=== PATIENT | male | born 1980 | race Caucasian/White ===

== ENCOUNTER 2025-01-30 10:25 | Emergency (ER) | payer SELFPAY ==
[~2025-01-30] VITALS: Ht 167.6 cm; Wt 64.0 kg
[2025-01-30 10:33] VITALS: O2SAT 99
[2025-01-30 10:42] VITALS: BP 169/101; PULSE 104; RESP 14; TEMP 37.2; O2SAT 98
[2025-01-30] MEDS: SODIUM CHLORIDE 0.9% 1,000 ML IV ONE (11:23)
[2025-01-30] MEDS: PANTOPRAZOLE SODIUM 40 MG/VIAL IV STA (11:23)
[2025-01-30] MEDS: ONDANSETRON HCL 4MG/2ML INJ IV STA (11:23)
[2025-01-30 11:30] LABS: BASOPHILS % 0.4 % (0.0-2.0); EOSINOPHILS % 0.5 % (0.0-5.0); HEMATOCRIT. 48.2 % (42.0-52.0); HEMOGLOBIN. 16.5 g/dL (14.0-18.0); LYMPHOCYTES % 19.7 % (20.0-50.0); MEAN CORPUSCULAR HEMOGLOBIN 31.3 pg (28.0-32.0); MEAN CORPUSCULAR HGB CONC 34.2 g/dL (31.0-37.0); MEAN CORPUSCULAR VOLUME 91.5 fL (80.0-94.0); MEAN PLATELET VOLUME 7.8 fl (7.4-10.4); NEUTROPHILS % 75.4 % (40.0-76.0); PLATELET 258 x1000/uL (130-400); RED BLOOD CELL COUNT 5.27 mill/uL (4.7-6.1); RED CELL DISTRIBUTION WIDTH 13.8 % (11.6-14.6); WHITE BLOOD COUNT 6.5 x1000/uL (4.5-11.0)
[2025-01-30 11:41] LABS: CHLORIDE 103 mEq/L (98-107); POTASSIUM 3.8 mEq/L (3.5-5.1); SODIUM 142 mEq/L (136-145)
[2025-01-30 11:42] LABS: CARBON DIOXIDE 27 mEq/L (21-32)
[2025-01-30 11:43] LABS: CALCIUM 9.1 mg/dL (8.7-10.4)
[2025-01-30 11:48] LABS: CREATININE 1.1 mg/dL (0.6-1.3); ETHANOL BLOOD 198 mg/dL (<10); GLUCOSE 107 mg/dL (70-105); UREA NITROGEN BLOOD 15 mg/dL (9-23)
[2025-01-30 11:49] LABS: ALANINE AMINOTRANSFERASE 37 IU/L (10-49)
[2025-01-30 11:50] LABS: ALBUMIN 4.5 g/dL (3.2-4.8); ASPARTATE AMINOTRANSFERASE 35 IU/L (<34); BILIRUBIN DIRECT 0.2 mg/dL (<=3.0); BILIRUBIN TOTAL 0.9 mg/dL (0.1-1.0); PROTEIN TOTAL 8.1 g/dL (6.0-8.3)
[2025-01-30 12:07] LABS: TROPONIN I HIGH SENSITIVITY < 4 ng/L (3.0-53)
[2025-01-30] MEDS ORDERED: CHLORDIAZEPOXIDE 25MG CAPSULE PO ONE (13:00)
== END 2025-01-30 13:04 | disposition home or self-care (01) ==
LOC: ER 10:25
DX: F10.129 Alcohol abuse with intoxication, unspecified (principal); K29.70 Gastritis, unspecified, without bleeding; Z87.891 Personal history of nicotine dependence; Z79.899 Other long term (current) drug therapy; Y90.6 Blood alcohol level of 120-199 mg/100 ml
CPT/HCPCS: 80076; 80048; 80320; 83690; 85025; 84484; 36415; 93005; 96361; 96374; 96375; 99284; J2405; J2470; J7030; G0480